=== PATIENT | male | born 1980 | race Caucasian/White ===

== ENCOUNTER 2020-02-06 19:50 | Emergency (ER) | payer OTHER ==
[~2020-02-06] VITALS: Ht 177.8 cm; Wt 99.8 kg
--- NOTE | ~2020-02-06 | EMS ---
[address] [address] EMS Patient Care Report Name: ELENA MCINTYRE Room #: DEP JR Sarah#: [id number] Admission: 02/06/20 Attend Phys: Discharge: 02/06/20 Date of : 78 Report #: [id number] THIS REPORT FOR: //name// Report Transmitted: 02/07/2020 06:34 EMS Care Summary [facility] MED-ACT Incident [id number] @ 02/06/2020 19:12 Incident Location [address] [address] Patient ELENA MCINTYRE Male, 39 Years 1980 Patient Address [id number] [place] [address] Patient History Pacemaker/AICD,Hyperlipidemia,Cardiac Condition - Other, Patient Allergies No known allergies, Chief Complaint "sharp" chest pain Disposition Transported No Lights/[place] Dispatch Reason Chest Pain (Non-Traumatic) Transported To [facility] Narrative Pt says that he has been having sharp chest pain since about 2:00 this afternoon. He says that it has progressively gotten worse tonight while at work. He says that it hurts more to take a deep breath. Denies any recent illness. States that he quit smoking this year and so he does not cough as much as he used to. He says that he has had this type of pain before and it was right before he had a pacemaker placed. He denies ever having a heart [address] [address] EMS Patient Care Report Name: ELENA MCINTYRE Room #: DEP [facility]#: [id number] Admission: 02/06/20 Attend Phys: Discharge: 02/06/20 Date of : 78 Report #: [id number] attack. He says that his pulse was in the "40's" at that time. Denies any recent trauma. He rates this "sharp" discomfort at a "9" now. When it started this afternoon, it was a 3. Pt also says that he is nauseated and has pain radiating into the right side of his head. He says that he had this once and was prescribed Flexeril for it. 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 EKG. 12L=T wave inversion in V1-V4. SL established on scene. asa given as charted. ER contacted enroute. Pain management started. Fentanyl given as charted with improvement. Pain level now a "5" upon arrival at ER. Released with report in ER1. Initial Vitals @19:29P: 75,R: 20,SpO2: 97, @19:44P: 74,R: 20,Pain: 5/10,GCS: 15,SpO2: 96, @19:34P: 76,R: 20,GCS: 15,SpO2: 96, @19:18P: 55,R: 20,BP: 150/102,Pain: 9/10,GCS: 15,SpO2: 90,Revised Trauma: 12, @19:32P: 80,R: 20,BP: 142/92,Pain: 9/10,GCS: 15,SpO2: 96,Revised Trauma: 12, @19:46P: 49,R: 20,BP: 119/65,Pain: 5/10,GCS: 15,SpO2: 95,Revised Trauma: 12, Assessments @19:25MENTAL:No Abnormalities,SKIN:No Abnormalities,HEENT:Head/Face: No Abnormalities,Eyes: No Abnormalities,Neck/Airway: No Abnormalities,LUNG SOUNDS:General: No Abnormalities,Left Upper: No Abnormalities,Right Upper: No Abnormalities,Left Lower: No Abnormalities,Right Lower: No Abnormalities,ABDOMEN:General: No Abnormalities,Left Upper: No Abnormalities,Right Upper: No Abnormalities,Left Lower: No Abnormalities,Right Lower: No Abnormalities,PELVIS//GI:No Abnormalities,EXTREMITIES:Capillary Refill: Left Upper: < 2 Sec,Left Arm: No Abnormalities,Right Arm: No Abnormalities,Left Leg: No Abnormalities,Right Leg: No Abnormalities,PULSE:Radial: 2+ Normal,NEURO:No Abnormalities, Impression Chest Pain / Discomfort Procedures @19:3212-Lead ECGResponse: UnchangedSucceeded@19:30Aspirin - 325 Milligrams (mg) - OralResponse: Unchanged@19:25Surgical Mask on PatientResponse: Unchanged@19:32Saline Lock 10cc (18 ga) Site: Antecubital-RightResponse: UnchangedSucceeded@19:43Fentanyl - 50 Micrograms (mcg) - Intravenous (IV)Response: Improved Timeline 19:10,Call Received 19:10,Psap Call 19:12,Dispatched [address] [address] EMS Patient Care Report Name: ELENA MCINTYRE Room #: [facility] JR Sarah#: [id number] Admission: 02/06/20 Attend Phys: Discharge: 02/06/20 Date of : 78 Report #: [id number] 19:13,En Route 19:16,On Scene 19:17,At Patient 19:18,BP: 150/102 M,PULSE: 55,RR: 20 R,SPO2: 90 Ox,ETCO2: ,BG: ,PAIN: 9,GCS: 15, 19:25,Surgical Mask on Patient,Response: Unchanged 19:29,BP: / M,PULSE: 75,RR: 20 R,SPO2: 97 Ox,ETCO2: ,BG: ,PAIN: ,GCS: , 19:30,Aspirin - 325 Milligrams (mg) - Oral,Response: Unchanged 19:32,Saline Lock 10cc 18 ga Site: Antecubital-Right,Response: UnchangedSucceeded, 19:32,12-Lead ECG,Response: UnchangedSucceeded, 19:32,BP: 142/92 M,PULSE: 80,RR: 20 R,SPO2: 96 Ox,ETCO2: ,BG: ,PAIN: 9,GCS: 15, 19:34,BP: / M,PULSE: 76,RR: 20 R,SPO2: 96 Ox,ETCO2: ,BG: ,PAIN: ,GCS: 15, 19:36,Depart Scene 19:43,Fentanyl - 50 Micrograms (mcg) - Intravenous (IV),Response: Improved 19:44,BP: / M,PULSE: 74,RR: 20 R,SPO2: 96 Ox,ETCO2: ,BG: ,PAIN: 5,GCS: 15, 19:46,BP: 119/65 M,PULSE: 49,RR: 20 R,SPO2: 95 Ox,ETCO2: ,BG: ,PAIN: 5,GCS: 15, 19:46,At Destination 20:03,Call Closed Disclaimer v1.1 Copyright 2020 [employer] This EMS Care Summary contains data elements from the applicable legal record (which may be displayed differently). It is designed to provide pertinent information for the following purposes: continuity of care, clinical quality, and state data reporting. The complete legal record is available to ED staff and administrators of the receiving hospital in [facility]'s Patient Tracker. All data is provided "as is."
[~2020-02-06 19:50] MED LIST: IBUPROFEN 800800 M1 PO; IBUPROFEN 800800 MG PO; NORCO 5-325 TA1 EACH PO; ONDANSETRON HCL4 M2 PO; ROBAXIN500 MG PO; TRAMADOL 50 MG50 MG PO
[2020-02-06 20:42] LABS: ANION GAP 9 mmol/L (7-16); BUN 7 mg/dL (7-18); CHLORIDE 105 mmol/L (98-107); CO2 24 mmol/L (21-32); CREATININE 0.9 mg/dL (0.7-1.3); GLUCOSE 89 mg/dL (74-106); POTASSIUM 3.4 mmol/L (3.5-5.1); SODIUM 138 mmol/L (136-145)
[2020-02-06 20:47] LABS: APTT 26.9 Seconds (24.5-32.8); PROTIME 10.7 Seconds (9.3-11.4)
[2020-02-06] MEDS ORDERED: LIPITOR 20 MG T20 M1 PO (20:53)
[2020-02-06] MEDS ORDERED: FLEXERIL PO (20:53)
[2020-02-06] MEDS ORDERED: PROTONIX 20 MG20 MG PO (20:53)
[2020-02-06 20:56] LABS: ALBUMIN 3.6 g/dL (3.4-5.0); SGOT 16 U/L (15-37); SGPT 23 U/L (16-63); TOTAL BILIRUBIN 0.5 mg/dL (0.2-1.0); TOTAL PROTEIN 7.8 g/dL (6.4-8.2); TROPONIN-I <0.06 ng/mL (<0.06)
[2020-02-06 21:27] LABS: AMP/METHAMP Negative (Negative); BARBITURATES Negative (Negative); BENZODIAZEPINES Negative (Negative); COCAINE Negative (Negative); METHADONE Negative (Negative); OPIATES Negative (Negative); PCP Negative (Negative)
[2020-02-06 21:43] LABS: ABSOLUTE NEUTROPHILS 6.5 thou/uL (1.4-8.2); MCHC 33.7 g/dL (28.0-37.0)
[2020-02-06 21:45] LABS: BASOPHILS 0.3 % (0.0-2.0); EOSINOPHILS 1.1 % (0.0-3.0); HEMATOCRIT 39.4 % (42.0-52.0); HEMOGLOBIN 13.3 gm/dL (14.0-18.0); LYMPHOCYTES 28.3 % (24.0-44.0); MCH 31.6 pg (26.0-34.0); MCV 93.8 fL (80.0-100.0); MONOCYTES 5.6 % (1.0-8.0); PLATELET COUNT 156 thou/uL (150-400); POLYS 64.7 % (36.0-66.0); RDW 12.9 % (10.5-14.5)
[2020-02-06] MEDS ORDERED: APAP W/CODEINE1 TA2 PO (22:36)
[2020-02-06] MEDS ORDERED: NAPROSYN500 MG PO (22:36)
[2020-02-06 23:03] VITALS: BP 110/53
--- NOTE | 2020-02-07 07:18 | EKG ---
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
== END 2020-02-06 23:05 | disposition home or self-care (01) ==
LOC: ER 19:50
PROVIDERS: Emergency Medicine; Physician Assistant
DX: R07.89 Other chest pain (principal); J84.10 Pulmonary fibrosis, unspecified; Z90.49 Acquired absence of other specified parts of digestive tract; Z95.0 Presence of cardiac pacemaker; Z87.891 Personal history of nicotine dependence; Z79.899 Other long term (current) drug therapy

== ENCOUNTER 2020-03-01 12:37 | Emergency (ER) | payer OTHER ==
[~2020-03-01] VITALS: Ht 177.8 cm; Wt 104.3 kg
[~2020-03-01 12:37] MED LIST changes: +APAP W/CODEINE1 TA2 PO; +FLEXERIL PO; +LIPITOR 20 MG T20 M1 PO; +NAPROSYN500 MG PO; +PROTONIX 20 MG20 MG PO
[2020-03-01 13:26] LABS: ABSOLUTE NEUTROPHILS 8.4 thou/uL (1.4-8.2); BASOPHILS 0.3 % (0.0-2.0); EOSINOPHILS 0.9 % (0.0-3.0); HEMATOCRIT 38.2 % (42.0-52.0); HEMOGLOBIN 12.7 gm/dL (14.0-18.0); LYMPHOCYTES 18.6 % (24.0-44.0); MCH 31.2 pg (26.0-34.0); MCHC 33.3 g/dL (28.0-37.0); MCV 93.6 fL (80.0-100.0); MONOCYTES 6.2 % (1.0-8.0); PLATELET COUNT 159 thou/uL (150-400); RBC 4.09 mil/uL (4.50-6.00); RDW 12.9 % (10.5-14.5); WBC 11.4 thou/uL (4.0-11.0)
[2020-03-01 13:42] LABS: ANION GAP 5 mmol/L (7-16); BUN 13 mg/dL (7-18); CHLORIDE 103 mmol/L (98-107); CO2 26 mmol/L (21-32); GLUCOSE 103 mg/dL (74-106); SODIUM 134 mmol/L (136-145); TROPONIN-I <0.06 ng/mL (<0.06)
[2020-03-01 17:58] VITALS: BP 100/64
--- NOTE | 2020-03-02 07:42 | EKG ---
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 : 1980 Requested By: Isela Solis Order Number: [id number] MD: Oni Burks Measurements Intervals [place] Rate: 70 P: [place]: 156 QRS: 45 QRSD: 87 T: 29 QT: 356 QTc: 385 Interpretive Statements Atrial-paced rhythm Nonspecific T abnormalities, anterior leads Compared to ECG 02/06/2020 20:02:36 Lateral T wave abnormality is less prominent Electronically Signed On 03-02-2020 7:42:25 PHOTOENGRAVING RETOUCHER by Oni Burks [email or web address] <ELECTRONICALLY SIGNED> By: Oni Burks MD, [facility] 03/02/20 0742 1240 1240 Oni Burks MD, FACC /EPI
== END 2020-03-01 17:59 | disposition home or self-care (01) ==
LOC: ER 12:37
PROVIDERS: Emergency Medicine
DX: S40.012A Contusion of left shoulder, initial encounter (principal); R07.89 Other chest pain; R55 Syncope and collapse; F12.90 Cannabis use, unspecified, uncomplicated; Z87.891 Personal history of nicotine dependence; Z79.899 Other long term (current) drug therapy; Z90.49 Acquired absence of other specified parts of digestive tract; Z95.0 Presence of cardiac pacemaker; W18.30XA Fall on same level, unspecified, initial encounter; Y93.89 Activity, other specified; Y92.69 Other specified industrial and construction area as the place of occurrence of the external cause; Y99.9 Unspecified external cause status

== ENCOUNTER 2020-04-07 18:56 | Emergency (ER) | payer OTHER ==
[~2020-04-07] VITALS: Ht 177.8 cm; Wt 108.9 kg
--- NOTE | ~2020-04-07 | EMS ---
[facility] [address] [place] [address] EMS Patient Care Report Name: ELENA MCINTYRE Room #: REG JR Sarah#: [id number] Admission: 04/07/20 Attend Phys: Discharge: Date of : [birth year] Report #: [id number] THIS REPORT FOR: //name// Report Transmitted: 04/07/2020 18:56 EMS Care Summary [facility] MED-ACT Incident [id number] @ 04/07/2020 18:19 Incident Location [address] [place] [address] Patient ELENA MCINTYRE Male, 39 Years 1980 Patient Address [address] [place] [address] Patient History Cardiac Arrythmia,Pacemaker/AICD,Smoking, Patient Allergies No known allergies, Patient Medications Lipitor, Pantoprazole, Chief Complaint I feel dizzy. I almost fainted. Disposition Transported No Lights/[place] Dispatch Reason Unconscious/Fainting Transported To [facility] Narrative HISTORY. Pt was at work when he began to feel dizzy. Pt states he could feel his breathing rate increase, he began to experience an tightness/sharp pain in his chest and he felt like he was going to faint. Pt was able to get to a seated position and began to feel slightly better. EMS was activated due to the [facility] [address] [place] [address] EMS Patient Care Report Name: ELENA MCINTYRE Room #: REG ER Tyrel#: [id number] Admission: 04/07/20 Attend Phys: Discharge: Date of : 78 Report #: [id number] pts sharp chest pain and dizziness not being alleviated by sitting. Pt had a pacemaker placed in March of last year. In December of last year he began getting these dizzy, fainting episodes. Pt states he has had five of these types of episodes since December. Pt is scheduled for a Tilt test on Monday(04-10-20) of this week. Upon our arrival pt is found in the Kitchen, sitting on a chair. Pt is pale, warm and clammy. ASSESSMENT INDICATED IN CHART. TREATMENT. Pt is kept in chair and slid to open area and assisted to EMS cot/unit. VS, ECG, 12L. Look to chart for additional. Pt is able to relax and states his chest pain has almost resolved. Pt developed nausea in route that was resolved by sniffing an alcohol wipe. Pt states he feels better but still a little dizzy. TRANSPORT. [facility] is destination. [facility] is contacted. Information is given to staff. VS are monitored. Pt remains stable and alert. Pts color has improved and his skin has dried. DISPOSITION. Pt is able to slide from EMS cot to ED bed. Pt report is given to nursing. M 1142 is clear. Initial Vitals @18:32P: 74,R: 18,BP: 131/81,GCS: 15,Temp: 97.3F,Glucose: 95,SpO2: 100,Revised Trauma: 12,VT Suspected: false @18:51P: 68,R: 16,BP: 107/66,GCS: 15,SpO2: 98,Revised Trauma: 12,VT Suspected: false @18:33P: 77,R: 16,Pain: 4/10,GCS: 15,SpO2: 100,VT Suspected: false @18:25P: 84,R: 18,BP: 134/80,Pain: 4/10,GCS: 15,SpO2: 99,Revised Trauma: 12, @18:39P: 72,R: 16,BP: 130/78,GCS: 15,SpO2: 99,Revised Trauma: 12,VT Suspected: false Assessments @18:47MENTAL:Person Oriented,Time Oriented,Event Oriented,Place Oriented,SKIN:Pale,Diaphoresis,HEENT:LUNG SOUNDS:General: Nausea,ABDOMEN:General: Nausea,PELVIS//GI:EXTREMITIES:Left Arm: No Abnormalities,Right Arm: No Abnormalities,Left Leg: No Abnormalities,Right Leg: No Abnormalities,PULSE:Radial: 2+ Normal,NEURO: Impression Dizziness Procedures @18:39Saline Lock 10cc (18 ga) Site: Antecubital-RightResponse: UnchangedFailed@18:3312-Lead ECGResponse: UnchangedSucceeded [address] [address] EMS Patient Care Report Name: ELENA MCINTYRE Room #: REG JR Sarah#: [id number] Admission: 04/07/20 Attend Phys: Discharge: Date of : [birth year] Report #: [id number] Timeline 18:17,Call Received 18:17,Psap Call 18:19,Dispatched 18:20,En Route 18:22,On Scene 18:25,At Patient 18:25,BP: 134/80 M,PULSE: 84,RR: 18 R,SPO2: 99 Ox,ETCO2: ,BG: ,PAIN: 4,GCS: 15, 18:32,BP: 131/81 M,PULSE: 74,RR: 18 R,SPO2: 100 Ox,ETCO2: ,B,PAIN: ,GCS: 15, 18:33,12-Lead ECG,Response: UnchangedSucceeded, 18:33,BP: / M,PULSE: 77,RR: 16 R,SPO2: 100 Ox,ETCO2: ,BG: ,PAIN: 4,GCS: 15, 18:39,Saline Lock 10cc 18 ga Site: Antecubital-Right,Response: UnchangedFailed, 18:39,BP: 130/78 M,PULSE: 72,RR: 16 R,SPO2: 99 Ox,ETCO2: ,BG: ,PAIN: ,GCS: 15, 18:39,Depart Scene 18:51,BP: 107/66 M,PULSE: 68,RR: 16 R,SPO2: 98 Ox,ETCO2: ,BG: ,PAIN: ,GCS: 15, 18:51,At Destination 19:12,Call Closed Disclaimer v1.1 Copyright 2020 [employer] This EMS Care Summary contains data elements from the applicable legal record (which may be displayed differently). It is designed to provide pertinent information for the following purposes: continuity of care, clinical quality, and state data reporting. The complete legal record is available to ED staff and administrators of the receiving hospital in [employer]'s Patient Tracker. All data is provided "as is."
[2020-04-07 19:27] LABS: ABSOLUTE NEUTROPHILS 5.4 thou/uL (1.4-8.2); BASOPHILS 0.5 % (0.0-2.0); EOSINOPHILS 1.3 % (0.0-3.0); HEMATOCRIT 38.9 % (42.0-52.0); HEMOGLOBIN 13.1 gm/dL (14.0-18.0); MCH 31.3 pg (26.0-34.0); MCHC 33.7 g/dL (28.0-37.0); MONOCYTES 6.4 % (1.0-8.0); PLATELET COUNT 159 thou/uL (150-400); POLYS 55.8 % (36.0-66.0); RBC 4.18 mil/uL (4.50-6.00); RDW 12.8 % (10.5-14.5); WBC 9.6 thou/uL (4.0-11.0)
[2020-04-07 19:38] LABS: ANION GAP 8 mmol/L (7-16); BUN 9 mg/dL (7-18); CALCIUM 8.4 mg/dL (8.5-10.1); CHLORIDE 103 mmol/L (98-107); CO2 27 mmol/L (21-32); CREATININE 1.1 mg/dL (0.7-1.3); GLUCOSE 89 mg/dL (74-106); POTASSIUM 3.8 mmol/L (3.5-5.1); SODIUM 138 mmol/L (136-145)
[2020-04-07 19:48] LABS: ALBUMIN 3.6 g/dL (3.4-5.0); SGOT 18 U/L (15-37); SGPT 28 U/L (16-63); TOTAL BILIRUBIN 0.5 mg/dL (0.2-1.0); TOTAL PROTEIN 7.9 g/dL (6.4-8.2); TROPONIN-I <0.06 ng/mL (<0.06)
[2020-04-07 20:40] VITALS: BP 133/69
--- NOTE | 2020-04-08 07:05 | EKG ---
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
== END 2020-04-07 20:32 | disposition home or self-care (01) ==
LOC: ER 18:56
PROVIDERS: Emergency Medicine
DX: R55 Syncope and collapse (principal); Z95.0 Presence of cardiac pacemaker; Z79.899 Other long term (current) drug therapy; Z87.891 Personal history of nicotine dependence

== ENCOUNTER 2020-05-03 14:46 | Emergency (ER) | payer OTHER ==
[~2020-05-03] VITALS: Ht 177.8 cm; Wt 108.9 kg
--- NOTE | ~2020-05-03 | EMS ---
[facility] [address] [place] [address] EMS Patient Care Report Name: ELENA MCINTYRE Room #: REG JR Sarah#: [id number] Admission: 05/03/20 Attend Phys: Discharge: Date of : [birth year] Report #: [id number] THIS REPORT FOR: //name// Report Transmitted: 05/03/2020 14:51 EMS Care Summary [facility] MED-ACT Incident [id number] @ 05/03/2020 14:09 Incident Location [address] [place] [address] Patient ELENA MCINTYRE Male, 39 Years 1980 Patient Address [address] [place] [address] Patient History Hypertension (HTN),Pacemaker/AICD,Gastro-Esophageal Reflux Disease (GERD), Patient Allergies No known allergies, Patient Medications Lisinopril, Pantoprazole, Chief Complaint Dizziness and Nausea Disposition Transported No Lights/[place] Dispatch Reason Unconscious/Fainting Transported To [facility] Narrative Patient reports that 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 Patient reports onset of symptoms around 13:30 this afternoon. Patient stated he remembered going to use the restroom and then leaving the restroom. Patient stated that the next thing he [facility] [address] [place] [address] EMS Patient Care Report Name: ELENA MCINTYRE Room #: REG Tyrel#: [id number] Admission: 05/03/20 Attend Phys: Discharge: Date of : [birth year] Report #: [id number] remembered was waking up on the floor in the hallway outside the bathroom with a woman standing over him telling him that he was going to be ok. Patient reports that he has had several similar episodes since the day after (2019) and is currently under a physician's care. Patient stated so far no diagnosis has been provided and that he is scheduled for an MRI this coming Monday at [facility]. Patient stated he has had numerous CT scans but there has been no evidence of stroke/bleed/tumor etc. Patient stated that his last syncopal episode was 3 weeks ago and he was evaluated at [facility] ER (CT scan negative). Patient reports that he had a pacemaker placed in March 2019 and stated, "I had been feeling great until all of this started back in December. I'm frustrated." Patient denied taking a blood thinner. Patient c/o headache, dizziness, nausea, neck pain and left shoulder pain. Patient denied chest pain/pressure/discomfort, abdominal pain, difficulty breathing, vomiting/ diarrhea, cough, sore throat and fever. Patient stated that to his knowledge he has not had COVID 19 or been exposed to it and that he has not had any vaccinations yet. Patient requested ambulance transport to [facility] for further evaluation. Found this 39 y/o male patient lying on his left side on the floor in the back hallway in [facility] being attended to by E32. No acute distress was noted. Patient was a/o x 4. GCS 15. Patient's skin was warm, dry and slightly pale. Patient's radial pulse was strong and regular. Patient's respirations were regular and non labored. BRIAN. No slurred speech or facial droop noted. No oral trauma or incontinence noted. Patient had strong, equal attendant honor bar strength. No obvious trauma noted to the patient's head, neck or left shoulder. No deformities or crepitus noted. Patient's bG was 86mg/dL via finger stick. Patient was assisted up to a seated position on the floor. Patient was then assisted to a standing position and helped to sit on the stretcher. Patient was secured with seat belts and moved to the MICU. Sinus Rhythm on the monitor (Pacemaker). No ST changes noted on the patient's 12 lead. An 18 ga IV saline lock was established in the patient's right antecubital. Patient received 4mg Zofran IVP for his nausea and transport to [facility] ER was initiated. Patient c/o worsening neck pain so a c-collar was placed on the patient as a precaution. No neuro deficits noted before or after securing the c-collar. Monitored the patient's vitals and ECG. Patient stated his nausea had been relieved with the Zofran. Patient c/o persistent dizziness. Upon arrival at [facility] ER, the patient was taken to ER #9 and moved via draw sheet to the ER bed by [facility] and ER staff. Report and paperwork TOT the ER nurse at the patient's bedside. Initial Vitals @14:28P: 66,R: 22,Pain: 6/10,GCS: 15,SpO2: 98,PR Suspected: false @14:30P: 62,R: 22,Pain: 6/10,GCS: 15,SpO2: 97,PR Suspected: false @14:25P: 72,R: 22,BP: 122/82,Pain: 6/10,GCS: 15,Temp: 98.1F,Glucose: 86,SpO2: 96,Revised Trauma: 12, [facility] [address] [place] [address] EMS Patient Care Report Name: ELENA MCINTYRE Room #: REG JR Sarah#: [id number] Admission: 05/03/20 Attend Phys: Discharge: Date of : [birth year] Report #: [id number] @14:40P: 67,R: 20,BP: 155/79,Pain: 6/10,GCS: 15,SpO2: 95,Revised Trauma: 12, @14:37P: 65,R: 18,BP: 133/81,Pain: 6/10,GCS: 15,SpO2: 96,Revised Trauma: 12, Assessments @14:20MENTAL:Person Oriented,Time Oriented,Event Oriented,Place Oriented,SKIN:Pale,HEENT:Eyes: Left Pupil: 5-mm,Eyes: Right Pupil: 5-mm,Head/Face: No Abnormalities,Neck/Airway: No Abnormalities,LUNG SOUNDS:ABDOMEN:PELVIS//GI:EXTREMITIES:PULSE:NEURO: Impression Syncope / Fainting Procedures @14:25Saline Lock 10cc (18 ga) Site: Antecubital-RightResponse: ImprovedSucceeded@14:2812-Lead ECGResponse: UnchangedSucceeded@PTASurgical Mask on PatientResponse: Unchanged@14:32Spinal Motion RestrictionResponse: ImprovedSucceeded@14:19ALS AssessmentResponse: UnchangedSucceeded@14:27Ondansetron - 4 Milligrams (mg) - Intravenous (IV)Response: Improved 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,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 Mask on Patient,Response: Unchanged 14:08,Call Received 14:08,Psap Call 14:09,Dispatched 14:10,En Route 14:17,On Scene 14:18,At Patient 14:19,ALS Assessment,Response: UnchangedSucceeded, 14:25,BP: 122/82 M,PULSE: 72,RR: 22 R,SPO2: 96 Ox,ETCO2: ,B,PAIN: 6,GCS: 15, 14:25,Saline Lock 10cc 18 ga Site: Antecubital-Right,Response: ImprovedSucceeded, 14:27,Ondansetron - 4 Milligrams (mg) - Intravenous (IV),Response: Improved 14:28,12-Lead ECG,Response: UnchangedSucceeded, 14:28,BP: / M,PULSE: 66,RR: 22 R,SPO2: 98 Ox,ETCO2: ,BG: ,PAIN: 6,GCS: 15, 14:30,BP: / M,PULSE: 62,RR: 22 R,SPO2: 97 Ox,ETCO2: ,BG: ,PAIN: 6,GCS: 15, 14:30,Depart Scene 14:32,Spinal Motion Restriction,Response: ImprovedSucceeded, 14:37,BP: 133/81 M,PULSE: 65,RR: 18 R,SPO2: 96 Ox,ETCO2: ,BG: ,PAIN: 6,GCS: 15, 14:40,BP: 155/79 M,PULSE: 67,RR: 20 R,SPO2: 95 Ox,ETCO2: ,BG: ,PAIN: 6,GCS: 15, 14:40,At Destination 15:03,Call Closed Disclaimer v1.1 Copyright 2020 [employer] [address] [address] EMS Patient Care Report Name: ELENA MCINTYRE Room #: REG JR Sarah#: [id number] Admission: 05/03/20 Attend Phys: Discharge: Date of : [birth year] Report #: [id number] This EMS Care Summary contains data elements from the applicable legal record (which may be displayed differently). It is designed to provide pertinent information for the following purposes: continuity of care, clinical quality, and state data reporting. The complete legal record is available to ED staff and administrators of the receiving hospital in [facility]'s Patient Tracker. All data is provided "as is."
[2020-05-03 15:43] LABS: ABSOLUTE NEUTROPHILS 3.5 thou/uL (1.4-8.2); BASOPHILS 0.6 % (0.0-2.0); EOSINOPHILS 2.4 % (0.0-3.0); HEMATOCRIT 35.9 % (42.0-52.0); HEMOGLOBIN 12.2 gm/dL (14.0-18.0); MCH 31.8 pg (26.0-34.0); MCHC 33.9 g/dL (28.0-37.0); MCV 93.8 fL (80.0-100.0); MONOCYTES 7.6 % (1.0-8.0); PLATELET COUNT 141 thou/uL (150-400); POLYS 53.4 % (36.0-66.0); RBC 3.83 mil/uL (4.50-6.00); RDW 12.9 % (10.5-14.5); WBC 6.6 thou/uL (4.0-11.0)
[2020-05-03 15:47] LABS: ANION GAP 9 mmol/L (7-16); BUN 12 mg/dL (7-18); CALCIUM 8.3 mg/dL (8.5-10.1); CHLORIDE 104 mmol/L (98-107); CO2 25 mmol/L (21-32); CREATININE 0.9 mg/dL (0.7-1.3); GLUCOSE 103 mg/dL (74-106); POTASSIUM 3.9 mmol/L (3.5-5.1); SODIUM 138 mmol/L (136-145)
[2020-05-03 15:56] LABS: TROPONIN-I <0.06 ng/mL (<0.06)
[2020-05-03 17:18] LABS: URINE BILIRUBIN NEGATIVE (Negative); URINE BLOOD TRACE (Negative); URINE CLARITY CLEAR; URINE COLOR YELLOW; URINE GLUCOSE-RANDOM* NEGATIVE (Negative); URINE KETONES NEGATIVE (Negative); URINE LEUKOCYTES-REFLEX NEGATIVE (Negative); URINE NITRITE-REFLEX NEGATIVE (Negative); URINE PROTEIN (DIPSTICK) NEGATIVE (Negative)
[2020-05-03] MEDS ORDERED: CYCLOBENZAPRINE5 MG PO (17:50)
[2020-05-03] MEDS ORDERED: MOBIC15 MG PO (17:50)
[2020-05-03 18:40] VITALS: BP 129/90
--- NOTE | 2020-05-04 07:20 | EKG ---
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
== END 2020-05-03 18:47 | disposition home or self-care (01) ==
LOC: ER 14:46
PROVIDERS: Emergency Medicine
DX: S16.1XXA Strain of muscle, fascia and tendon at neck level, initial encounter (principal); R55 Syncope and collapse; Z90.49 Acquired absence of other specified parts of digestive tract; Z95.0 Presence of cardiac pacemaker; Z87.891 Personal history of nicotine dependence; Z79.899 Other long term (current) drug therapy; X58.XXXA Exposure to other specified factors, initial encounter; Y93.89 Activity, other specified; Y92.89 Other specified places as the place of occurrence of the external cause; Y99.8 Other external cause status